=== PATIENT | female | born 1945 | race Caucasian/White ===

== ENCOUNTER 2023-08-16 10:42 | Observation (INO) ==
[2023-08-16] MEDS ORDERED: NITROGLYCERIN SL 0.4 MG/TAB TAB SL STA (11:02)
--- NOTE | 2023-08-16 11:02 | Emergency Department Note ---
Impression & Plan Left bundle branch block, Chest pressure ED Provider Note Name: KIERAN DOLL Age: 78 Sex: Female Arrives Via: Ambulance Informant: Patient, Daughter, EMS ED Provider: Lakhwinder Martinez MD Chief Complaint: Chest pain Impression: As per impressions above Medical Decision Makin-year-old female with 2 to 3 days of chest pain. Does seem to come and go is pressure like. She has a history of smoking hypertension. No previous CAD history. Does note previous stress testing about a year ago which she believes is unremarkable and follows with a whiskey regauger for. Patient's arrival EKG is left bundle branch block. Unclear if this is chronic or not and unable to find old EKG. Chest pain essentially resolved with nitro that she did develop a bit of a headache and feeling a bit dizzy. Patient apparently had been short of breath earlier as well but had gotten a DuoNeb by EMS and was feeling better. Initial chest x-ray, labs are all unremarkable. Troponin is normal. All symptoms have been on and off it is tough to say that this is definitively rule out for ACS. Furthermore patient is at moderate risk cardiac sherwood In the setting of unclear etiology I do think that hospitalization is indicated. Of note patient was feeling bit dizzy following nitro but was able to get to bathroom. She has no neurodeficits NIH is 0 and this was following nitro thus I would hold off on neuro imaging at this time. Hospitalist consulted for further management. Triage/Nursing Notes reviewed by Me Differential:Cardiac ischemia, aortic dissection, pulmonary embolism, pneumothorax, pneumonia, pericarditis, myocarditis, esophageal rupture, GERD, cholecystitis, pancreatitis, musculoskeletal, as well as other pathologies. Vital Signs: reviewed and remarkable for no significant abnormalities Interventions: Sublingual nitroglycerin p.o. Patient already had received aspirin 324 mg prior to arrival Labs:ED labs Reviewed by me and remarkable for no significant abnormalities Imagin view chest x-ray as per my interpretation reveals no pneumothorax, infiltrate, widened mediastinum. EKG:As per my interpretation. Indication chest pain. Sinus bradycardia with multiple PACs. 54 bpm and a QTc of 445. No overt ischemia appreciated or Flash's criteria. No previous EKGs available for comparison. Cardiac/Tele Monitoring: Cardiac Monitoring: An Order was placed for continuous cardiac monitoring. The monitor shows a rate of 60 with a normal sinus rhythm. Consults:Dr Magdalena RATLIFF Hospitalist Plan: Disposition:Hospitalization. Condition: Good History of Present Illness: 78-year-old female arrives for evaluation of chest pain. Patient states 2 to 3 days of developing chest pain. Also having some shortness of breath associated with it. Chest pain is pressure-like and centralized. Somewhat radiates to her neck. Has had a bit of a runny nose as well. Notes she was getting bit lightheaded as well due to this. Called 911 this morning after taking aspirin and no improvement. Patient did take 324 mg p.o. aspirin. EMS gave her breathing treatment in route. Patient notes that her breathing has improved though she still has some mild substernal chest pressure. Patient is followed with a whiskey regauger in the past and had multiple stress test. She denies any history of CAD though or previous cardiac catheterization. Patient is a smoker. She has a history of blood pressure. Denies any alcohol or drug use. Past Medical History: Hypertension, tobacco use Home Medications: Blood pressure medicine Allergies: No known drug allergy Vitals:Blood Pressure: 135/85, Pulse 68, RR 18, T 36.4C, O2 97% on RA Physical Exam: GENERAL: Patient is uncomfortable/anxious appearing and in mild distress. RESPIRATORY: No dyspnea. Clear to auscultation and equal bilaterally. CARDIOVASCULAR: Regular rate and rhythm.No murmur appreciated. GASTROINTESTINAL: Abdomen soft, non-tender, no peritonitis. EXTREMITIES: Normal motion all extremities, no cyanosis, no edema. NEUROLOGIC: Alert and oriented. No focal neurologic deficits appreciated SKIN: No rash, no jaundice, no diaphoresis. PSYCH: Appropriate GCS: 15 ED Course: Times/Reassessments: On repeat evaluations patient denies further chest pain though notes some lightheadedness. Blood pressure stable. 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 Beliefs That Will Affect Care: None Current Living Situation: Alone Feels Safe at Home: Yes Safety Concerns: Feels Safe At This Time Assistive Devices: Denture - Upper, Denture - Lower and Glasses Allergies Allergies Allergy/AdvReac Type Severity Reaction Status Date / Time No Known Allergies Allergy Unverified 08/16/23 15:59 Home Meds Home Medications Medication Instructions Recorded Confirmed amlodipine 2.5 mg tablet 2.5 mg PO QAM 08/16/23 08/16/23 chlorthalidone 25 mg tablet 25 mg PO DAILY 08/16/23 08/16/23 triamcinolone acetonide 0.1 % 1 applic topical BID PRN irritation 08/16/23 08/16/23 topical cream Results & Data (ED) Vital Signs Vital Signs - 24 hr 08/16/23 10:50 08/16/23 11:10 08/16/23 12:00 Temperature 36.4 C L Temperature Source Oral Pulse Rate 68 59 L Pulse Rate [Left Finger] 77 Pulse Rhythm Regular Pulse Strength Normal Respiratory Rate 18 20 Respiratory Effort / Characteristics Non-Labored Spontaneous Respiratory Depth Normal Respiratory Pattern Regular Blood Pressure 135/85 Blood Pressure [Left Arm] 115/76 Blood Pressure Mean 101 Blood Pressure Mean [Left Arm] 89 Blood Pressure Position Sitting Pulse Oximetry 97 98 Oxygen Delivery Method Room Air Sepsis Recent Fever Within 48 Hours No Sepsis New/Unexplained Change in Mental Status No Sepsis Action Taken by Nursing No Action Required Laboratory Data 08/16/23 11:02 08/16/23 11:02 Lab Results 08/16/23 08/16/23 08/16/23 Range/Units 11:00 11:02 11:23 WBC 8.44 (4.8-10.8) K/ul RBC 4.77 (4.20-5.40) M/uL Hgb 14.2 (12.0-16.0) g/dl Hct 43.1 (37.0-47.0) % MCV 90.4 (80.0-100.0) fL MCH 29.8 (25.0-34.0) pg MCHC 32.9 (32.0-36.0) g/dL RDW Std Deviation 45.7 (36.4-46.3) fL RDW Coeff of Alexei 13.7 (11.5-14.5) % Plt Count 276 (130-400) K/uL MPV 10.3 (9.4-12.4) fL Immature Gran % (Auto) 0.2 % Neut % (Auto) 64.7 % Lymph % (Auto) 25.9 % [place] % (Auto) 7.1 % Eos % (Auto) 1.4 % Baso % (Auto) 0.7 % Neut # (Auto) 5.45 (1.40-6.50) K/uL Lymph # (Auto) 2.19 (1.20-3.40) K/uL [place] # (Auto) 0.60 H (0.11-0.59) K/uL Eos # (Auto) 0.12 (0.00-0.50) K/uL Baso # (Auto) 0.06 (0.00-0.20) K/uL Immature Gran # (Auto) 0.02 (0.01-0.20) K/uL PT 10.6 (9.0-12.0) Seconds INR 1.0 (0.9-1.1) Sodium 139 (136-145) mmol/L Potassium 4.1 (3.5-5.1) mmol/L Chloride 105 (98-107) mmol/L Carbon Dioxide 24 (21-32) mmol/L Anion Gap 10 (3-11) BUN 24 H (6-23) mg/dl Creatinine 1.09 (0.6-1.2) mg/dl Est Cr Clr Drug Dosing 44.8 ml/min Est GFR ( Amer) 57.1 ml/min Est GFR (Non-Af Amer) 49.3 ml/min BUN/Creatinine Ratio 22.0 H (10-20) Glucose 100 H (70-99(Fasting)) mg/dl Calcium 9.6 (8.6-10.3) mg/dl Magnesium 1.6 L (1.7-2.4) mg/dl Total Bilirubin 0.9 (0.2-1.0) mg/dl Direct Bilirubin 0.1 (0-0.2) mg/dl AST 17 (13-39) U/L ALT 10 (7-52) U/L Alkaline Phosphatase 66 (34-104) U/L Troponin I High Sens 5.8 (0-14) pg/ml Total Protein 7.2 (6.0-8.3) gm/dl Albumin 4.4 (3.4-5.0) gm/dl Lipase 14 (11-82) U/L Urine Color Yellow Urine Appearance Clear (Clear) Urine pH 5.5 (4.5-7.5) Ur Specific Magnet <= 1.005 (1.000-1.030) Urine Protein Negative (Negative) Urine Glucose (UA) Negative (Negative) Urine Ketones Negative (Negative) Urine Blood Negative (Negative) Urine Nitrite Positive A (Negative) Urine Bilirubin Negative (Negative) Urine Urobilinogen Negative (Negative) Ur Leukocyte Esterase 2+ H (Negative) Urine RBC 0-4 (0-4) /hpf Urine WBC >30 H (0-5) /hpf Ur Epithelial Cells >30 H (0-5) /lpf Other Crystals [place] (None Prsent) Urine Bacteria 4+ H (Negative) SARS-CoV-2 (PCR) NEGATIVE (Negative) Influenza Type A (PCR) Negative (Neg) Influenza Type B (PCR) Negative (Neg) RSV (RT-PCR) Negative (Neg) 08/16/23 Range/Units 13:15 WBC (4.8-10.8) K/ul RBC (4.20-5.40) M/uL Hgb (12.0-16.0) g/dl Hct (37.0-47.0) % MCV (80.0-100.0) fL MCH (25.0-34.0) pg MCHC (32.0-36.0) g/dL RDW Std Deviation (36.4-46.3) fL RDW Coeff of Alexei (11.5-14.5) % Plt Count (130-400) K/uL MPV (9.4-12.4) fL Immature Gran % (Auto) % Neut % (Auto) % Lymph % (Auto) % [place] % (Auto) % Eos % (Auto) % Baso % (Auto) % Neut # (Auto) (1.40-6.50) K/uL Lymph # (Auto) (1.20-3.40) K/uL [place] # (Auto) (0.11-0.59) K/uL Eos # (Auto) (0.00-0.50) K/uL Baso # (Auto) (0.00-0.20) K/uL Immature Gran # (Auto) (0.01-0.20) K/uL PT (9.0-12.0) Seconds INR (0.9-1.1) Sodium (136-145) mmol/L Potassium (3.5-5.1) mmol/L Chloride (98-107) mmol/L Carbon Dioxide (21-32) mmol/L Anion Gap (3-11) BUN (6-23) mg/dl Creatinine (0.6-1.2) mg/dl Est Cr Clr Drug Dosing ml/min Est GFR ( Amer) ml/min Est GFR (Non-Af Amer) ml/min BUN/Creatinine Ratio (10-20) Glucose (70-99(Fasting)) mg/dl Calcium (8.6-10.3) mg/dl Magnesium (1.7-2.4) mg/dl Total Bilirubin (0.2-1.0) mg/dl Direct Bilirubin (0-0.2) mg/dl AST (13-39) U/L ALT (7-52) U/L Alkaline Phosphatase (34-104) U/L Troponin I High Sens 7.1 (0-14) pg/ml Total Protein (6.0-8.3) gm/dl Albumin (3.4-5.0) gm/dl Lipase (11-82) U/L Urine Color Urine Appearance (Clear) Urine pH (4.5-7.5) Ur Specific Magnet (1.000-1.030) Urine Protein (Negative) Urine Glucose (UA) (Negative) Urine Ketones (Negative) Urine Blood (Negative) Urine Nitrite (Negative) Urine Bilirubin (Negative) Urine Urobilinogen (Negative) Ur Leukocyte Esterase (Negative) Urine RBC (0-4) /hpf Urine WBC (0-5) /hpf Ur Epithelial Cells (0-5) /lpf Other Crystals (None Prsent) Urine Bacteria (Negative) SARS-CoV-2 (PCR) (Negative) Influenza Type A (PCR) (Neg) Influenza Type B (PCR) (Neg) RSV (RT-PCR) (Neg) Administered Medications Discontinued Medications Magnesium Sulfate/Dextrose (Magnesium Sulfate / D5w) 1 gm in 100 mls @ 50 mls/hr IV Q2H SYED Stop: 08/16/23 17:14 Last Infusion: 08/16/23 16:45 Dose: Infused Documented By: Admin: 08/16/23 14:41 Dose: 50 mls/hr Documented By: Infusion: 08/16/23 14:41 Dose: Infused Documented By: Admin: 08/16/23 13:13 Dose: 50 mls/hr Documented By: LENARD Nitroglycerin (Nitroglycerin Sl 0.4 Mg/Tab Tab) 0.4 mg SL NOW STA Stop: 08/16/23 11:03 Last Admin: 08/16/23 11:15 Dose: 0.4 mg Documented By: ASHISH Discharge Plan Visit Data Chief Complaint: Chest Pain ED Provider: Lakhwinder Martinez Discharge Problem: Left bundle branch block, Chest pressure Patient Disposition: Admitted As Inpatient
--- NOTE | 2023-08-16 11:14 | XRay Report ---
XR chest 1V portable CLINICAL HISTORY: chest pain TECHNIQUE: Single frontal radiograph of the chest was obtained. Comparison: None available at the time of this dictation. FINDINGS: No lines and tubes are seen. The cardiomediastinal silhouette is normal. The lungs are clear. No evid ence of pleural effusion or pneumothorax. IMPRESSION: No acute chest disease. ACT 112: Negative or not required by law. Electronically signed by: Freedom Castellanos M.D. 08/16/2023 11:13 AM
[2023-08-16 11:24] LABS: Basophils # (auto) 0.06 K/uL (0.00-0.20); Basophils % (auto) 0.7 %; Eosinophils # (auto) 0.12 K/uL (0.00-0.50); Eosinophils % (auto) 1.4 %; Hematocrit (blood only) 43.1 % (37.0-47.0); Hemoglobin 14.2 g/dl (12.0-16.0); Immature Granulocytes # (auto) 0.02 K/uL (0.01-0.20); Immature Granulocytes % (auto) 0.2 %; Lymphocytes # (auto) 2.19 K/uL (1.20-3.40); Lymphocytes % (auto) 25.9 %; Mean Corpuscular Hemoglobin 29.8 pg (25.0-34.0); Mean Corpuscular Hgb Conc 32.9 g/dL (32.0-36.0); Mean Corpuscular Volume 90.4 fL (80.0-100.0); Mean Platelet Volume 10.3 fL (9.4-12.4); Monocytes % (auto) 7.1 %; Neutrophils # (auto) 5.45 K/uL (1.40-6.50); Neutrophils % (auto) 64.7 %; Platelet Count 276 K/uL (130-400); RDW Coefficient of Variation 13.7 % (11.5-14.5); RDW Standard Deviation 45.7 fL (36.4-46.3); Red Blood Count 4.77 M/uL (4.20-5.40); White Blood Count 8.44 K/ul (4.8-10.8)
[2023-08-16 11:28] LABS: Appearance Urine Clear (Clear); Bilirubin Urine Negative (Negative); Blood Urine Negative (Negative); Color Urine Yellow; Glucose Urine UA Negative (Negative); Ketones Urine Negative (Negative); Leukocyte Esterase Urine 2+ (Negative); Nitrite Urine Positive (Negative); Protein Urine Negative (Negative); Specific Gravity Urine <= 1.005 (1.000-1.030); Urobilinogen Urine Negative (Negative); pH Urine 5.5 (4.5-7.5)
[2023-08-16 11:39] LABS: Epithelial Cell Urine >30 /lpf (0-5)
[2023-08-16 11:40] LABS: Bacteria Urine 4+ (Negative); RBC Urine 0-4 /hpf (0-4); WBC Urine >30 /hpf (0-5)
[2023-08-16 11:42] LABS: Albumin Level 4.4 gm/dl (3.4-5.0); Bilirubin Direct 0.1 mg/dl (0-0.2); Bilirubin,Total 0.9 mg/dl (0.2-1.0); Calcium 9.6 mg/dl (8.6-10.3); Creatinine Clr Calc Pharmacy 44.8 ml/min; Est GFR (African American) 57.1 ml/min; Est GFR (Non-African American) 49.3 ml/min; Magnesium 1.6 mg/dl (1.7-2.4); Potassium 4.1 mmol/L (3.5-5.1); Total Protein 7.2 gm/dl (6.0-8.3)
[2023-08-16 11:48] LABS: Troponin I High Sensitivity 5.8 pg/ml (0-14)
[2023-08-16 11:56] LABS: Prothrombin Time 10.6 Seconds (9.0-12.0)
[2023-08-16 12:11] LABS: Influenza A virus by PCR Negative (Neg); Influenza B virus by PCR Negative (Neg); RSV by PCR Negative (Neg); SARS CoV2 RNA(COVID-19) Ceph NEGATIVE (Negative)
[2023-08-16] MEDS: MAGNESIUM SULFATE / D5W 1 GM/100 ML BAG IV SCH ×2 (13:13→14:41)
--- NOTE | 2023-08-16 13:13 | History & Physical Report ---
Date of Service August 16, 2023 Assessment & Plan (1) Pre-syncope: Plan: This appears to be her major presenting complaint rather than her chest pressure. Taking amlodipine and chlorthalidone for blood pressure with similar episode of dizziness last year on chlorthalidone and atenolol. Stop antihypertensives. Orthostatics starting tomorrow. Suspect reason she could not no longer tolerate her antihypertensives due to possible UTI as below if no clear alternative reason is apparent from telemetry or echocardiogram Monitor on telemetry for arrhythmia TTE (2) Chest pressure: Plan: 2 days of chest pressure now resolved after nitroglycerin with no exertional component. Initial troponin negative. Repeat pending Low suspicion of acute coronary syndrome but also does not fit GI cause. TTE Monitor on telemetry (3) Abnormal urinalysis: Plan: Possible UTI however current urinalysis with greater than 30 epithelial cells. Recommend repeat clean-catch sample prior to starting antibiotics. (4) Hypertension: Plan: Hold amlodipine and chlorthalidone (5) Left bundle branch block: Plan: Unknown if new Plan VTE prophylaxis - low risk Diet - heart healthy Disposition - observation to med/tele Admission and Anticipated Discharge Date Admission Date: August 16, 2023 History of Present Illness Chief Complaint: Dizziness, chest pressure, shortness of breath. Primary Care Provider: Gabi Tanner is a 78-year-old female who presents to the ER with 2 days of chest pressure, shortness of breath, presyncope. She reports a similar episode of dizziness 1 year ago while on atenolol and chlorthalidone. She was noted to have a low heart rate at that time in the 40s and atenolol was discontinued. Subsequently she was seen by cardiology as a primary care physician felt there was a problem with her heart and she was started on amlodipine. She reports having a stress echocardiogram (suspected dobutamine from her description) without need for follow-up cardiac catheterization approximately 1 year ago. She had a resting echocardiogram 6 months ago. 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 Before 2 days ago however she has not noticed any chest pain/pressure or shortness of breath on exertion. She has not recently changed her antihypertensives. She has noted significant orthostasis while bending over causing severe lightheadedness just in the last 2 days. No leg swelling, palpitations, claudication or syncope. No room spinning sensation. The chest pressure has been present for the last 2 days has not changed significantly. It is not worse on exertion, positional, inspiration or with eating. She denies any current gastritis or heartburn symptoms. She was noted to have a left bundle branch block on EKG. She is unsure whether this is new or old. She takes a daily aspirin although is unclear why she takes this. She denies any heart attacks or strokes. She smokes 4 to 5 cigarettes a day. She was also noted to have an abnormal urinalysis concerning for infection in the ER. She denies any specific urinary complaints such as dysuria, flank tenderness, fevers, chills, change in urinary frequency/smell/color. She has chronic urinary frequency which has not changed. Allergies Allergy/AdvReac Type Severity Reaction Status Date / Time Unable to Assess Allergy Unverified 08/16/23 13:52 Home Medications Medication Instructions Recorded Confirmed Type amlodipine 2.5 mg tablet 2.5 mg PO QAM 08/16/23 08/16/23 History chlorthalidone 25 mg tablet 25 mg PO DAILY 08/16/23 08/16/23 History triamcinolone acetonide 0.1 % 1 applic topical BID PRN irritation 08/16/23 08/16/23 History topical cream Past Med/Surg History Medical History (Updated 08/16/23 @ 14:03 by Patrick Nichols MD) Hypertension Left bundle branch block Social History Smoking Status: Current every day smoker Feels Safe at Home: Yes Review of Systems Review of Systems: All systems reviewed & are unremarkable except as noted in HPI & below Physical Exam Constitutional: WD/WN, vitals as above Eyes: PERRL, conjunctivae normal, anicteric sclerae ENMT: external ear and nose normal, oropharynx normal Respiratory: normal respiratory effort, lungs clear to auscultation Cardiovascular: RRR, no murmur, no edema Gastrointestinal (Abdomen): normal bowel sounds, soft, nontender, no hepatosplenomegaly Musculoskeletal: no cyanosis or clubbing, extremities motor strength 5/5 Skin: no rashes, warm and dry Neurologic: moves all extremities and awake; not confused Psychiatric: A+Ox3, euthymic affect Genitourinary: no CVA tenderness Results & Data Results & Data Vital Signs (Past 12 Hours) Vital Signs Temp Pulse Pulse Resp BP BP Pulse Ox 08/16/23 12:00 77 20 115/76 98 08/16/23 11:10 59 L 08/16/23 10:50 36.4 C L 68 18 135/85 97 O2 Del Method 08/16/23 12:00 08/16/23 11:10 08/16/23 10:50 Room Air Laboratory Results Abnormal lab results 08/16/23 08/16/23 Range/Units 11:00 11:02 [place] # (Auto) 0.60 H (0.11-0.59) K/uL BUN 24 H (6-23) mg/dl BUN/Creatinine Ratio 22.0 H (10-20) Glucose 100 H (70-99(Fasting)) mg/dl Magnesium 1.6 L (1.7-2.4) mg/dl Urine Nitrite Positive A (Negative) Ur Leukocyte Esterase 2+ H (Negative) Urine WBC >30 H (0-5) /hpf Ur Epithelial Cells >30 H (0-5) /lpf Urine Bacteria 4+ H (Negative) Diagnostic Findings XR chest 1V portable CLINICAL HISTORY: chest pain TECHNIQUE: Single frontal radiograph of the chest was obtained. Comparison: None available at the time of this dictation. FINDINGS: No lines and tubes are seen. The cardiomediastinal silhouette is normal. The lungs are clear. No evidence of pleural effusion or pneumothorax. IMPRESSION: No acute chest disease. Medications Administered ER medications given: Nitro glycerin 0.4 mg sublingual ECG Rate (beats per minute): 54 Rhythm: sinus bradycardia Findings: + LBBB and + left axis deviation Comparison ECG Date: no prior available Code Status & VTE Plan Code Status DNR/DNI per patient wishes VTE Prophylaxis Plan VTE Prophylaxis will be ordered: No PG Care Time/CCT Total # of Minutes Spent Total Time Spent with Patient: Total time spent is greater than 50% in coordination of care (as documented) at patient's floor/unit and/or counseling patient: Coding Level of Care Code 68848 INT INP/OBS CARE 2/55MIN Diagnoses Pre-syncope R55 Chest pressure R07.89 Abnormal urinalysis R82.90 Hypertension I10 Left bundle branch block I44.7
--- NOTE | 2023-08-16 14:06 | Electrocardiogram Report ---
Test Reason : Blood Pressure : / mmHG Vent. Rate : 054 BPM Atrial Rate : 054 BPM P-R Int : 184 ms QRS Dur : 154 ms QT Int : 470 ms P-R-T Axes : 096 -60 119 degrees QTc Int : 445 ms Sinus bradycardia with Premature atrial complexes Left axis deviation Left bundle branch block Abnormal ECG No previous ECGs available Confirmed by Hang Amezquita ([id number]) on 08/16/2023 2:05:49 PM Referred By: REFERRED SELF Confirmed By:Hang Amezquita
[2023-08-16] MEDS ORDERED: ACETAMINOPHEN 325 MG TAB PO PRN (17:20)
[2023-08-16 19:39] LABS: Appearance Urine Slightly Cloudy (Clear); Bilirubin Urine Negative (Negative); Blood Urine Trace-intact (Negative); Color Urine Yellow; Glucose Urine UA Negative (Negative); Ketones Urine Negative (Negative); Leukocyte Esterase Urine 1+ (Negative); Nitrite Urine Positive (Negative); Protein Urine Negative (Negative); Urobilinogen Urine Negative (Negative); pH Urine 5.5 (4.5-7.5)
[2023-08-16 20:03] LABS: Bacteria Urine 4+ (Negative); Epithelial Cell Urine 0-5 /lpf (0-5)
[2023-08-17] MEDS ORDERED: cefTRIAXone SODIUM 1,000 MG in DEXTROSE 5 % MINI-B 50 ML IV SCH (08:00)
[2023-08-17] MEDS ORDERED: ASPIRIN 81 MG ECTAB PO SCH (09:00)
--- NOTE | 2023-08-17 11:40 | XCELERA ---
[id number]
--- NOTE | 2023-08-17 12:43 | Discharge Summary ---
Date of Service August 17, 2023 Admission HPI Per Admitting Provider Aria Tanner is a 78-year-old female who presents to the ER with 2 days of chest pressure, shortness of breath, presyncope. She reports a similar episode of dizziness 1 year ago while on atenolol and chlorthalidone. She was noted to have a low heart rate at that time in the 40s and atenolol was discontinued. Subsequently she was seen by cardiology as a primary care physician felt there was a problem with her heart and she was started on amlodipine. She reports having a stress echocardiogram (suspected dobutamine from her description) without need for follow-up cardiac catheterization approximately 1 year ago. She had a resting echocardiogram 6 months ago. 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 Before 2 days ago however she has not noticed any chest pain/pressure or shortness of breath on exertion. She has not recently changed her antihypertensives. She has noted significant orthostasis while bending over causing severe lightheadedness just in the last 2 days. No leg swelling, palpitations, claudication or syncope. No room spinning sensation. The chest pressure has been present for the last 2 days has not changed significantly. It is not worse on exertion, positional, inspiration or with eating. She denies any current gastritis or heartburn symptoms. She was noted to have a left bundle branch block on EKG. She is unsure whether this is new or old. She takes a daily aspirin although is unclear why she takes this. She denies any heart attacks or strokes. She smokes 4 to 5 cigarettes a day. She was also noted to have an abnormal urinalysis concerning for infection in the ER. She denies any specific urinary complaints such as dysuria, flank tenderness, fevers, chills, change in urinary frequency/smell/color. She has chr onic urinary frequency which has not changed. Admission Exam Per Admitting Provider Constitutional: WD/WN, vitals as above Eyes: PERRL, conjunctivae normal, anicteric sclerae ENMT: external ear and nose normal, oropharynx normal Respiratory: normal respiratory effort, lungs clear to auscultation Cardiovascular: RRR, no murmur, no edema Gastrointestinal (Abdomen): normal bowel sounds, soft, nontender, no hepatosplenomegaly Musculoskeletal: no cyanosis or clubbing, extremities motor strength 5/5 Skin: no rashes, warm and dry Neurologic: moves all extremities and awake; not confused Psychiatric: A+Ox3, euthymic affect Genitourinary: no CVA tenderness Principal Diagnosis Urinary tract infection, lightheadedness/dizziness, chest pain, shortness of breath Discharge Exam General: Well-appearing, NAD HEENT: Normal conjunctivae Cardiovascular: RRR, no M/R/G Pulmonary: CTAB, no W/R/R Abdomen: Soft, NT/ND, no guarding Extremities: Moving all extremities, no pedal edema Integumentary: No suspicious rash or lesion on exposed skin Neurologic: AAOx3, no focal deficits Psychiatric: Appropriate mood/affect Discharge Data Allergies Allergy/AdvReac Type Severity Reaction Status Date / Time No Known Allergies Allergy Unverified 08/16/23 15:59 Consultations 08/16/23 13:20 ED Decision to Admit Stat Hospital Course (1) Pre-syncope: Taking amlodipine and chlorthalidone for blood pressure with similar episode of dizziness last year on chlorthalidone and atenolol Suspect reason she could not no longer tolerate her antihypertensives due to possible UTI as below Antihypertensives held while inpatient and on discharge Patient to monitor home BP - When dizziness resolves and BP increases (consistently above 130/80), restart amlodipine. If BP remains elevated after 1 to 2 days, resume chlorthalidone. TTE unremarkable -EF 55 to 60%, borderline concentric LVH, mild tricuspid regurgitation Discussed consideration of carotid artery studies while inpatient, and patient would like to be discharged homerecommended the studies to be performed outpatient (2) Orthostatic dizziness: Improved but not fully resolved by discharge Mild orthostatic vitals (Sitting BP 136/73 and HR 61 to Standing BP 112/68 and HR 63) Antihypertensives held while inpatient and on discharge - suspect reason she could not no longer tolerate her antihypertensives due to possible UTI as below Patient to monitor home BP - When dizziness resolves and BP increases (consistently above 130/80), restart amlodipine. If BP remains elevated after 1 to 2 days, resume chlorthalidone. (3) Urinary tract infection: UCx 08/16 with GNR - final results pending on discharge Possible cause of her decreased BP and orthostatic dizziness Started on ceftriaxone inpatient - discharged on course of cefpodoxime (4) Chest pressure: 2 days of chest pressure now resolved after nitroglycerin with no exertional component. Troponin negative x2 TTE unremarkable -EF 55 to 60%, borderline concentric LVH, mild tricuspid regurgitation No events on telemetry Continue home ASA Follow up outpatient with cardiology and PCP (5) Hypertension: Hold amlodipine and chlorthalidone - see above (6) Left bundle branch block: Unknown if new Total Time Total Time Spent Total Time Spent (In Minutes): 45 Total Time Includes: Examination of the Patient, Discharge Planning and Medication Reconciliation Discharge Plan Discharge Items Patient Disposition: Home - Self-Care Reason For Visit: PRESYNCOPE Discharge Diagnosis: Lightheadedness/dizziness, chest pain, shortness of breath, urinary tract infection Activity: Resume your previous activity Non-emergency contact: Primary Care Provider and Kiln Packer Call non-emergency contact if: you have any medication questions and your symptoms worsen Follow-up/Referrals: Gabi Wilson PA-C [Primary Care Provider] - (PLEASE CALL YOUR PRIMARY CARE PROVIDER TO SCHEDULE A HOSPITAL DISCHARGE FOLLOW-UP APPOINTMENT WITHIN 7-10 DAYS) Diet: Heart Healthy Addtl Attending Provider Instructions: You were admitted with lightheadedness/dizziness, chest pain, and shortness of breath. You were found to have a urinary tract infection. You were given 1 dose of antibiotics while you were in the hospital. A prescription to complete antibiotic treatment for your urinary tract infection was sent to your pharmacy. The blood work and echocardiogram were overall unremarkable. Monitor your home blood pressure. When your dizziness resolves and blood pressure increases (consistently above 130/80), restart amlodipine. If your blood pressure remains elevated after 1 to 2 days, resume chlorthalidone. 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 You are recommended to have testing for your carotid arteries to evaluate for stenosis on an outpatient basis. Pending Studies at Discharge: Yes Studies:: Final urine culture result Stand-Alone Forms: [facility], Smoking Cessation Medications and DC Order Prescriptions: New aspirin 81 mg Tablet,Delayed Release (Dr/Ec) 81 mg PO QAM Qty: 30 0RF cefpodoxime 100 mg tablet 100 mg PO BID 5 Days Qty: 10 0RF Rx Instructions: must administer with a meal/food Continued triamcinolone acetonide 0.1 % cream 1 applic TOPICAL BID PRN (Reason: irritation) Held amlodipine 2.5 mg tablet 2.5 mg PO QAM Hold Instructions: Resume on 08/23/23. Monitor home blood pressure. When dizziness resolves and blood pressure increases (consistently above 130/80), restart amlodipine. If blood pressure remains elevated after 1-2 days, resume chlorthalidone. chlorthalidone 25 mg tablet 25 mg PO DAILY Hold Instructions: Resume on 08/23/23. Monitor home blood pressure. When dizziness resolves and blood pressure increases (consistently above 130/80), restart amlodipine. If blood pressure remains elevated after 1-2 days, resume chlorthalidone. Discharge Orders: Discharge Order (Routine); Ordered 08/17/23 Ordered By: Amber Carlisle Admission Data Admit Date/Time: 08/16/23 13:50 Attending Provider: Amber Carlisle Admit Provider: Patrick Nichols Primary Care Provider: Gabi Wilson Other Providers: Patrick Nichols Other Interventions: Discharge Summary Assessment (RN) Last Done: 08/17/23 11:34 Coding Level of Care Code 87866 INP/OBS DISCH >30 MIN Diagnoses Pre-syncope R55 Orthostatic dizziness R42 Urinary tract infection N39.0 Chest pressure R07.89 Hypertension I10 Left bundle branch block I44.7
== END 2023-08-17 13:33 | disposition home or self-care (01) ==
LOC: 2W 10:42 → ED 10:42 → SUATTDRO 13:50 → 2W 08-17 06:02